=== PATIENT | female | born 1995 | race Caucasian/White ===

== ENCOUNTER 2025-01-10 15:14 | Emergency (ER) | payer OTHER ==
[~2025-01-10] VITALS: Ht 147.3 cm; Wt 77.1 kg
[2025-01-10 17:28] VITALS: BP 104/52; PULSE 74; RESP 18; TEMP 98.2; O2SAT 99
[2025-01-10 18:33] VITALS: BP 104/52; PULSE 72; RESP 18; TEMP 98.2; O2SAT 99
== END 2025-01-10 18:33 | disposition home or self-care (01) ==
LOC: ER 15:14
DX: J11.1 Influenza due to unidentified influenza virus with other respiratory manifestations (principal); Z98.890 Other specified postprocedural states
CPT/HCPCS: 99281